=== PATIENT | female | born 1955 | race Caucasian/White ===

== ENCOUNTER 2023-09-21 08:29 | Outpatient (CLI) | payer MEDICARE ==
--- NOTE | 2023-09-21 22:52 | Ultrasound Report ---
PROCEDURE: Pelvic w/Transvaginal INDICATIONS: POSTMENOPAUSAL BLEEDING TECHNIQUE: Real-time scanning was performed of the pelvic organs, with image documentation. Additional endovagi nal scanning was necessary due to incomplete visualization of the adnexal and endometrial structures by transabdominal scanning. COMPARISON: None. FINDINGS: Uterus: Uterus is anteverted and normal in size at 6.8 x 3.7 x 4.0 cm. The myometrium is heterogene ous. The endometrium measures 8 mm in combined thickness. There is a right anterior subserosal fibr oid measuring 0.9 x 1.2 x 0.8 cm and a left posterior lower uterine segment intramural fibroid measur ing 1.3 x 1.1 x 1.4 cm. Ovaries: The right ovary measures 1.6 x 1.0 x 1.6 cm, with a calculated ovarian volume of 1.3 cc. T he left ovary measures 1.6 x 1.0 x 1.4 cm, with a calculated ovarian volume of 1.2 cc. The ovaries h ave a normal sonographic appearance. Less than 12 follicles can be seen in each ovary. No adnexal m asses are seen. No cystic lesions measuring greater than 3 cm. Other: No pathologic free abdominal or pelvic fluid. IMPRESSION: Thickened endometrium measuring 8 mm in this postmenopausal patient with abnormal uterine bleeding. R ecommend further evaluation with endometrial biopsy. Intrauterine fibroids as described above. Normal appearance of the bilateral ovaries. Reviewed by: Isrrael De La Cruz MD on 09/21/2023 10:51 PM PDT Approved by: Isrrael De La Cruz MD on 09/21/2023 10:51 PM PDT Station ID: [id number]
== END 2023-09-21 08:30 | disposition home or self-care (01) ==
LOC: DI 08:29
PROVIDERS: ATTEND Obstetrics & Gynecology
DX: N95.0 Postmenopausal bleeding (principal); R93.89 Abnormal findings on diagnostic imaging of other specified body structures; D25.2 Subserosal leiomyoma of uterus; D25.1 Intramural leiomyoma of uterus